=== PATIENT | male | born 1960 | race Caucasian/White ===

== ENCOUNTER 2022-03-26 12:56 | Emergency (ER) | payer BC, OTHER ==
[~2022-03-26] VITALS: Ht 182 cm; Wt 95.0 kg
[2022-03-26] MEDS ORDERED: NS IV 1000 ML 1,000 ML IV STA (13:22)
[2022-03-26] MEDS ORDERED: LORazepam INJ 2 MG/ML (ATIVAN) VIAL IVP ONE (13:30)
[2022-03-26 13:33] LABS: BASOPHILS # (AUTO) 0.1 10^3/uL (0.0-0.1); BASOPHILS % (AUTO) 0 % (0-10); EOSINOPHILS % (AUTO) 0 % (0-10); HEMATOCRIT 47 % (40-54); HEMOGLOBIN 16.1 g/dL (13.3-17.7); LYMPHOCYTES # (AUTO) 1.4 10^3/uL (1.0-4.0); LYMPHOCYTES % (AUTO) 10 % (12-44); MEAN CORPUSCULAR HEMOGLOBIN 33 pg (25-34); MEAN CORPUSCULAR HGB CONC 35 g/dL (32-36); MEAN CORPUSCULAR VOLUME 94 fL (80-99); MEAN PLATELET VOLUME 10.4 fL (9.0-12.2); MONOCYTES # (AUTO) 0.6 10^3/uL (0.0-1.0); MONOCYTES % (AUTO) 4 % (0-12); NEUTROPHILS # (AUTO) 11.8 10^3/uL (1.8-7.8); NEUTROPHILS % (AUTO) 85 % (42-75); PLATELET COUNT 333 10^3/uL (130-400); WHITE BLOOD COUNT 13.9 10^3/uL (4.3-11.0)
[2022-03-26 13:35] LABS: CHLORIDE 105 MMOL/L (98-107); SODIUM 142 MMOL/L (135-145)
--- NOTE | 2022-03-26 13:35 | ED Abdominal Pain ---
General Chief Complaint: Abdominal/GI Problems Stated Complaint: ABD CRAMPS/CONSTIPATION Nursing Triage Note: PT TO RM 6 PER W/C PT CO OF SEVERE ABD CRAMPS RATES 5/10, PT HYPERVENTILATING. STATES LAST BM YESTERDAY. STATES UNABLE TO HAVE BM TODAY. HAS COLONOSCOPY SCHEDULED FOR 04/19 IN [place] Source of Information: Patient Exam Limitations: No Limitations (ANAHY PARR) History of Present Illness Date Seen by Provider: Mar 26, 2022 Time Seen by Provider: 13:35 Initial Comments Patient is a 61-year-old male who presents ED with severe abdominal cramps. Symptoms started around 330 this morning. Pain is intermittent located to his lower abdomen. Patient states he feels nauseous without vomiting or diarrhea. He had a bowel movement yesterday. No history of previous surgeries in his abdomen. Patient is slightly diaphoretic. Patient appears to be hyperventilating. States he is having difficulty catching his breath but denies of any chest pain or cardiac history. Denies of any urinary symptoms. Patient states he he scheduled for colonoscopy in [place] on the of next month. Denies of any dark tarry stools, mucousy stools, dysuria, hematuria, fever. History of similar symptoms. Patient took one dose of Bentyl this morning. History of abdominal attacks for the past 8 years. Patient smokes marijuana frequently. (ANAHY PARR) Allergies and Home Medications Allergies Coded Allergies: Penicillins (Verified Allergy, Unknown, 03/26/22) Patient Home Medication List Home Medication List Reviewed: Yes (ANAHY PARR) Hyoscyamine Sulfate (Hyoscyamine Sulfate) 0.125 Mg Tab.subl, 0.125 MG SL Q4H PRN for ABDOMINAL PAIN Prescribed by: ELIZABETH WALLACE on 03/26/22 [id number] Review of Systems Review of Systems Constitutional: No chills; diaphoresis; No malaise, No weakness EENTM: No Eye Pain, No Ear Pain, No Mouth Pain, No Throat Pain, No Throat Swelling Respiratory: Denies Cough, Denies Orthopnea Cardiovascular: Denies Chest Pain Gastrointestinal: Abdominal Pain; Denies Diarrhea, Denies Nausea, Denies Vomiting Genitourinary: Denies Burning, Denies Discharge Musculoskeletal: No back pain, No joint pain Skin: No change in color, No change in hair/nails Psychiatric/Neurological: Anxiety; Denies Depressed (ANAHY PARR) All Other Systems Reviewed Negative Unless Noted: Yes (ANAHY PARR) Past Ssvjwkv-Mnwtvu-Uqujkw Hx Patient Social History Tobacco Use?: No Substance use?: Yes Substance type: Marijuana Substance frequency: Daily Alcohol Use?: Yes Alcohol type: Beer, Hard Liquor Alcohol Frequency: Couple times a week Pt feels they are or have been: No (ANAHY PARR) Immunizations Up To Date Influenza Vaccine Up-to-Date: No; Not Current First/Initial COVID19 Vaccinat: YES Second COVID19 Vaccination Isak: YES (ANAHY PARR) Past Medical History Surgery/Hospitalization HX: HEART STENT, VASECTOMY, ARTHROSCOPY KNEES (ANAHY PARR) Physical Exam Vital Signs Vital Signs - First Documented 03/26/22 13:00 Pulse 69 Resp 18 B/P (MAP) 145/97 (113) Pulse Ox 100 O2 Delivery Room Air (ROBERT REIS MD) Vital Signs Capillary Refill : Less Than 3 Seconds (ANAHY PARR) Height/Weight/BMI Height: '" Weight: lbs. oz. 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, no motor/sensory deficits, alert, normal mood/affect, oriented x 3 Skin: normal color, warm/dry (ANAHY PARR) Progress/Results/Core Measures Results/Orders Lab Results Laboratory Tests Test 03/26/22 13:09 03/26/22 13:26 03/26/22 16:30 Range/Units White Blood Count 13.9 H 4.3-11.0 10^3/uL Red Blood Count 4.96 4.30-5.52 10^6/uL Hemoglobin 16.1 13.3-17.7 g/dL Hematocrit 47 40-54 % Mean Corpuscular Volume 94 80-99 fL Mean Corpuscular Hemoglobin 33 25-34 pg Mean Corpuscular Hemoglobin Concent 35 32-36 g/dL Red Cell Distribution Width 13.0 10.0-14.5 % Platelet Count 333 130-400 10^3/uL Mean Platelet Volume 10.4 9.0-12.2 fL Immature Granulocyte % (Auto) 1 % Neutrophils (%) (Auto) 85 H 42-75 % Lymphocytes (%) (Auto) 10 L 12-44 % Monocytes (%) (Auto) 4 0-12 % Eosinophils (%) (Auto) 0 0-10 % Basophils (%) (Auto) 0 0-10 % Neutrophils # (Auto) 11.8 H 1.8-7.8 10^3/uL Lymphocytes # (Auto) 1.4 1.0-4.0 10^3/uL Monocytes # (Auto) 0.6 0.0-1.0 10^3/uL Eosinophils # (Auto) 0.0 0.0-0.3 10^3/uL Basophils # (Auto) 0.1 0.0-0.1 10^3/uL Immature Granulocyte # (Auto) 0.1 0.0-0.1 10^3/uL Sodium Level 142 135-145 MMOL/L Potassium Level 4.0 3.6-5.0 MMOL/L Chloride Level 105 98-107 MMOL/L Carbon Dioxide Level 18 L 21-32 MMOL/L Anion Gap 19 H 5-14 MMOL/L Blood Urea Nitrogen 17 7-18 MG/DL Creatinine 1.14 0.60-1.30 MG/DL Estimat Glomerular Filtration Rate 74 BUN/Creatinine Ratio 15 Glucose Level 151 H 70-105 MG/DL Calcium Level 10.7 H 8.5-10.1 MG/DL Corrected Calcium 8.5-10.1 MG/DL Total Bilirubin 0.7 0.1-1.0 MG/DL Aspartate Amino Transf (AST/SGOT) 17 5-34 U/L Alanine Aminotransferase (ALT/SGPT) 16 0-55 U/L Alkaline Phosphatase 79 40-136 U/L Troponin I < 0.028 <0.028 NG/ML Total Protein 8.6 H 6.4-8.2 GM/DL Albumin 5.0 H 3.2-4.5 GM/DL Lipase 25 8-78 U/L Glucometer 136 H 70-110 MG/DL Urine Color ORANGE Urine Clarity CLEAR Urine pH 8.0 5-9 Urine Specific Herod 1.020 1.016-1.022 Urine Protein 2+ H NEGATIVE Urine Glucose (UA) NEGATIVE NEGATIVE Urine Ketones 1+ H NEGATIVE Urine Nitrite NEGATIVE NEGATIVE Urine Bilirubin NEGATIVE NEGATIVE Urine Urobilinogen 0.2 < = 1.0 MG/DL Urine Leukocyte Esterase NEGATIVE NEGATIVE Urine RBC (Auto) TRACE-L H NEGATIVE Urine RBC 5-10 H /HPF Urine WBC RARE /HPF Urine Squamous Epithelial Cells NONE /HPF Urine Crystals NONE /LPF Urine Bacteria NEGATIVE /HPF Urine Casts NONE /LPF Urine Mucus SMALL H /LPF Urine Culture Indicated NO (ROBERT REIS MD) Medications Given in ED Current Medications Medications Dose Ordered Sig/Cindy Route Start Time Stop Time Status Last Admin Dose Admin Iohexol 100 ml ONCE ONCE IV 03/26/22 15:15 03/26/22 15:16 DC 03/26/22 15:29 80 ML Lorazepam 1 mg ONCE ONCE IVP 03/26/22 13:30 03/26/22 13:31 DC 03/26/22 13:33 1 MG Sodium Chloride 100 ml ONCE ONCE IV 03/26/22 15:15 03/26/22 15:16 DC 03/26/22 15:29 80 ML (ROBERT REIS MD) Vital Signs/I&O 03/26/22 03/26/22 13:00 16:40 Pulse 69 74 Resp 18 18 B/P (MAP) 145/97 (113) 148/94 Pulse Ox 100 97 O2 Delivery Room Air Room Air (ROBERT REIS MD) Blood Pressure Mean: 113 FSBG Bedside Testing Finger Stick Blood Glucose: 126 (ANAHY PARR) Departure Communication (PCP) Patient on arrival hyperventilating, diaphoretic. Patient appeared anxious. Patient was given a dose of Ativan with improvement. Pain improved. Patient with marijuana use. Last bowel movement yesterday. Scheduled for colonoscopy April 17 in [place]. He has had this intermittent pain for 8 years. He states today's pain is worse. Started develop pain here CT abdomen pelvis was ordered secondary to lower and left quadrant tenderness thatr develop. CT abdomen pelvis was unremarkable but did note diverticulosis. Lab work showed white blood count of 13.9. Normal kidney function and liver function. Normal troponin. EKG sinus rhythm. EKG and cardiac work-up was ordered secondary to him complaining of shortness of breath. This is likely secondary to hyperventilating. Patient pain improved here. Will discharge a trial of hyoscyamine. Recommend not taking Bentyl with this medication. Follow-up with your GI specialist. Return precaution were discussed with the patient. Pain- free at this time. Discussed diet changes. Marijuana sensation (ANAHY PARR) Impression Primary Impression: Abdominal pain Disposition: HOME, SELF-CARE Condition: Stable Departure-Patient Inst. Decision time for Depature: 16:18 (ANAHY PARR) Referrals: [facility]LOCAL PHYSICIAN (PCP) Primary Care Physician Patient Instructions: Abdominal Pain, Adult ED Scripts Hyoscyamine Sulfate (Hyoscyamine Sulfate) 0.125 Mg Tab.subl 0.125 MG SL Q4H PRN for ABDOMINAL PAIN, #6 TAB Prov: ANAHY PARR 03/26/22 ATTENDING PHYSICIAN NOTE: I was physically present as attending physician in the emergency department during the care of this patient, but I was not directly involved in the decision making or delivery of care for this patient. (ROBERT REIS MD) ANAHY PARR Mar 26, 2022 13:35 ROBERT REIS MD Mar 26, 2022 20:50
[2022-03-26 13:36] LABS: CALCIUM 10.7 MG/DL (8.5-10.1)
[2022-03-26 13:37] LABS: GLUCOSE 151 MG/DL (70-105); TOTAL PROTEIN 8.6 GM/DL (6.4-8.2)
[2022-03-26 13:38] LABS: CARBON DIOXIDE 18 MMOL/L (21-32)
[2022-03-26 13:39] LABS: BILIRUBIN,TOTAL 0.7 MG/DL (0.1-1.0)
[2022-03-26 13:41] LABS: ALKALINE PHOSPHATASE 79 U/L (40-136); CREATININE SERUM 1.14 MG/DL (0.60-1.30); GFR ESTIMATED 74
[2022-03-26 13:42] LABS: BUN/CREATININE RATIO 15
[2022-03-26 13:44] LABS: ALANINE AMINOTRANSFERASE 16 U/L (0-55); LIPASE 25 U/L (8-78)
[2022-03-26] MEDS ORDERED: NS 100 ML (IVPB) BAG IV ONE (15:15)
[2022-03-26] MEDS ORDERED: IOHEXOL 350 MG/ML 100 ML (OMNIPAQUE 350) VIAL IV ONE (15:15)
[2022-03-26] MEDS ORDERED: HOLD METFORMIN - RECEIVED CONTRAST 20 ML VIAL IV SCH (15:15)
--- NOTE | 2022-03-26 15:40 | Diagnostic Imaging Report ---
CT ABDOMEN/PELVIS W TECHNIQUE: Multiple contiguous axial images were obtained through the abdomen and pelvis after administration of intravenous contrast. All CT scans use one or more of the following dose optimizing techniques: automated exposure control, MA and/or KvP adjustment based on patient size and exam type or iterative reconstruction. INDICATION: Left lower quadrant pain. COMPARISON: None available. FINDINGS: Lower chest: The lung bases are clear. No pericardial or pleural effusion. Peritoneum: No free intraperitoneal air or fluid. Liver and biliary system: The liver is normal. The gallbladder is normal. No biliary duct dilation. Spleen and Pancreas: Spleen is normal. The pancreas enhances normally without mass lesion or peripancreatic inflammatory changes. Adrenals: Normal. tract: The kidneys enhance normally without suspicious mass or obstruction. Urinary bladder is distended without wall thickening. Prostate is normal. GI tract: Stomach is partially filled with fluid. No bowel obstruction. Descending and sigmoid colon diverticulosis without diverticulitis. Normal appendix. Vasculature and Lymph nodes: Normal caliber aorta without dissection. No abdominal or pelvic lymphadenopathy. Musculoskeletal: No concerning osseous lesion. Small fat-containing umbilical hernia. IMPRESSION: 1. No acute obstructive or inflammatory process. 2. Descending and sigmoid colon diverticulosis without diverticulitis. Dictated by: Dictated on workstation # [id number]
[2022-03-26] MEDS ORDERED: fentaNYL INJ 100 MCG/2 ML AMP IVP STA (16:10)
[2022-03-26] MEDS ORDERED: ALPR0.5T PO (16:20)
[2022-03-26] MEDS ORDERED: HYOS-19 SL (16:23)
[2022-03-26 16:40] VITALS: BP 148/94
[2022-03-26 16:52] LABS: BILIRUBIN,URINE NEGATIVE (NEGATIVE); CLARITY,URINE CLEAR; COLOR,URINE ORANGE; GLUCOSE, URINE (UA) NEGATIVE (NEGATIVE); KETONES,URINE 1+ (NEGATIVE); LEUKOCYTE ESTERASE ,URINE NEGATIVE (NEGATIVE); NITRITE,URINE NEGATIVE (NEGATIVE); PROTEIN,URINE 2+ (NEGATIVE)
[2022-03-26 16:59] LABS: BACTERIA,URINE NEGATIVE /HPF; WBC,URINE RARE /HPF
== END 2022-03-26 16:40 | disposition home or self-care (01) ==
LOC: ER 12:59
DX: R10.32 Left lower quadrant pain (principal); F41.9 Anxiety disorder, unspecified
CPT/HCPCS: 36415; 74177; 80053; 81000; 82947; 83690; 84484; 85025; 93005